=== PATIENT | female | born 1970 ===

== ENCOUNTER → 2021-06-07 06:13 | Outpatient (CLI) | payer OTHER | END | disposition home or self-care (01) | LOC: LAB 06:13 | PROVIDERS: ATTEND Internal Medicine Hematology & Oncology | DX: D50.8 Other iron deficiency anemias (principal); R79.89 Other specified abnormal findings of blood chemistry; I10 Essential (primary) hypertension; R74.02 Elevation of levels of lactic acid dehydrogenase [LDH]; K76.89 Other specified diseases of liver; D63.8 Anemia in other chronic diseases classified elsewhere; D55.0 Anemia due to glucose-6-phosphate dehydrogenase [G6PD] deficiency; D51.0 Vitamin B12 deficiency anemia due to intrinsic factor deficiency; D51.1 Vitamin B12 deficiency anemia due to selective vitamin B12 malabsorption with proteinuria; E03.8 Other specified hypothyroidism; E06.3 Autoimmune thyroiditis; C56.9 Malignant neoplasm of unspecified ovary; R97.0 Elevated carcinoembryonic antigen [CEA]; R97.8 Other abnormal tumor markers; R97.1 Elevated cancer antigen 125 [CA 125]; E11.9 Type 2 diabetes mellitus without complications; D68.61 Antiphospholipid syndrome; I82.402 Acute embolism and thrombosis of unspecified deep veins of left lower extremity; D50.0 Iron deficiency anemia secondary to blood loss (chronic); E66.9 Obesity, unspecified; Z12.0 Encounter for screening for malignant neoplasm of stomach ==

== ENCOUNTER 2021-06-07 07:47 | Outpatient (CLI) | payer OTHER | END 2021-06-07 07:54 | disposition home or self-care (01) | LOC: SONOGRAMA 07:47 → MAMO-SONO 08:00 | PROVIDERS: ATTEND Internal Medicine Hematology & Oncology | DX: E04.2 Nontoxic multinodular goiter (principal); I10 Essential (primary) hypertension; D68.61 Antiphospholipid syndrome; I82.402 Acute embolism and thrombosis of unspecified deep veins of left lower extremity; D50.0 Iron deficiency anemia secondary to blood loss (chronic); E66.8 Other obesity; Z72.0 Tobacco use ==

== ENCOUNTER 2021-07-24 09:12 | Outpatient (CLI) | payer OTHER | END 2021-07-24 09:17 | disposition home or self-care (01) | LOC: SONOGRAMA 09:12 | PROVIDERS: ATTEND Pathology Anatomic Pathology & Clinical Pathology | DX: E04.2 Nontoxic multinodular goiter (principal) ==

== ENCOUNTER 2021-08-02 06:11 | Outpatient (CLI) | payer OTHER | END 2021-08-02 06:13 | disposition home or self-care (01) | LOC: LAB 06:11 | PROVIDERS: ATTEND Internal Medicine Hematology & Oncology | DX: I82.402 Acute embolism and thrombosis of unspecified deep veins of left lower extremity (principal); D50.0 Iron deficiency anemia secondary to blood loss (chronic); Z72.0 Tobacco use; I10 Essential (primary) hypertension; E72.11 Homocystinuria; E72.12 Methylenetetrahydrofolate reductase deficiency ==

== ENCOUNTER 2021-08-09 06:16 | Outpatient (CLI) | payer OTHER | END 2021-08-09 06:17 | disposition home or self-care (01) | LOC: LAB 06:16 | PROVIDERS: ATTEND General Practice | DX: D68.52 Prothrombin gene mutation (principal); D68.51 Activated protein C resistance; D68.59 Other primary thrombophilia; E72.12 Methylenetetrahydrofolate reductase deficiency ==

== ENCOUNTER 2022-06-09 07:22 | Outpatient (CLI) | payer OTHER | END 2022-06-09 07:23 | disposition home or self-care (01) | LOC: LAB 07:22 | PROVIDERS: ATTEND Internal Medicine Hematology & Oncology | DX: D50.8 Other iron deficiency anemias (principal); I10 Essential (primary) hypertension; R74.02 Elevation of levels of lactic acid dehydrogenase [LDH]; K76.89 Other specified diseases of liver; D51.8 Other vitamin B12 deficiency anemias; E03.8 Other specified hypothyroidism; D68.61 Antiphospholipid syndrome; E72.11 Homocystinuria; E55.9 Vitamin D deficiency, unspecified; E06.3 Autoimmune thyroiditis; C73 Malignant neoplasm of thyroid gland; E72.12 Methylenetetrahydrofolate reductase deficiency; I82.402 Acute embolism and thrombosis of unspecified deep veins of left lower extremity; D50.0 Iron deficiency anemia secondary to blood loss (chronic); E66.9 Obesity, unspecified; Z72.0 Tobacco use; N39.0 Urinary tract infection, site not specified; E11.42 Type 2 diabetes mellitus with diabetic polyneuropathy; E78.2 Mixed hyperlipidemia; K76.0 Fatty (change of) liver, not elsewhere classified; E89.0 Postprocedural hypothyroidism ==

== ENCOUNTER 2022-07-26 08:03 | Outpatient (CLI) | payer OTHER | END 2022-07-26 08:05 | disposition home or self-care (01) | LOC: SONOGRAMA 08:03 | PROVIDERS: ATTEND Pathology Anatomic Pathology & Clinical Pathology | DX: C73 Malignant neoplasm of thyroid gland (principal); E89.0 Postprocedural hypothyroidism ==

== ENCOUNTER 2022-09-21 09:28 | Outpatient (CLI) | payer OTHER | END 2022-09-21 09:29 | disposition home or self-care (01) | LOC: LAB 09:28 | PROVIDERS: ATTEND Specialist | DX: D50.8 Other iron deficiency anemias (principal); N39.0 Urinary tract infection, site not specified; E11.42 Type 2 diabetes mellitus with diabetic polyneuropathy; E78.2 Mixed hyperlipidemia; K76.0 Fatty (change of) liver, not elsewhere classified; E03.8 Other specified hypothyroidism; E55.9 Vitamin D deficiency, unspecified; C73 Malignant neoplasm of thyroid gland; E89.0 Postprocedural hypothyroidism ==